=== PATIENT | female | born 1965 | race Caucasian/White ===

== ENCOUNTER 2024-09-28 12:19 | Outpatient (CLI) | payer OTHER, SELFPAY ==
--- NOTE | 2024-09-28 12:30 | ECG_ITS ---
Test Date: 2024-09-28 12:42:33 Measurements Intervals Freer Rate: 77 P: 44 MT: 168 QRS: 44 QRSD: 92 T: -8 QT: 366 QTc: 417 Interpretive Statements SINUS RHYTHM POSSIBLE ANTERIOR MYOCARDIAL INFARCTION [30 ms Q WAVE IN V3/V4, OR R < 0.2 mV IN V4], PROBABLY OLD STTW ABNORMALITY IN INFERIOR LEADS, CONSIDER ISCHEMIA No previous ECG available for comparison Electronically Signed On 09-28-2024 15:34:31 REPLENISHMENT ASSOCIATE by Frankie Brown M.D.
== END 2024-09-28 12:20 | disposition home or self-care (01) ==
PROVIDERS: PCP Registered Nurse; Visit Provider Podiatrist Foot & Ankle Surgery
DX: I10 Essential (primary) hypertension (principal); R94.31 Abnormal electrocardiogram [ECG] [EKG]
CPT/HCPCS: 93005

== ENCOUNTER 2024-10-01 00:17 | Day surgery (SDC) | payer OTHER, SELFPAY ==
[2024-09-23 10:21] VITALS: BMI 27.4
--- NOTE | 2024-09-23 10:32 | PC.NURSE ---
Report to the Outpatient Waiting Room, entrance under the green pavilion located off [facility], at time _0900_ on date _[id number]_. Planned Procedure Time: _1100_.? Time changes happen often and if your time is changed the preop area will call you the afternoon before. - You and your visitor will be asked to self-screen and do not enter if you have any COVID symptoms. Please call surgeon if you need to reschedule. - A mask is optional within the hospital at this time. Patients may have clear liquids (water, carbonated beverages, clear teas, apple juice) until 3 hours prior to surgery with a maximum of 20 ounces. - No food from midnight until time of surgery and no smoking. This includes no chewing gum, candy or mints. Take only the following medications with a SIP of water on the morning of surgery: ___Sertraline, Bupropion, and Gabapentin DO NOT STOP ANY OF YOUR OTHER PRESCRIPTION MEDICATIONS PRIOR TO SURGERY EXCEPT THE FOLLOWING Medications to discontinue per physician ___All vitamins Date to take last [id number]___[id number] Patient says she's stopping Meloxicam 1 week before surgery as told by 's office. Please no make-up, nail kinyarwanda, hairspray, perfume, deodorant, or body powder the day of surgery.? No jewelry (including any body piercings) or valuables the day of surgery, leave them at home.? Please take a shower or bath the night before, or the morning of, surgery with an antibacterial soap.? Wear comfortable, loose fitting clothing.? - Jewelry must be removed prior to entering the operating room.? Rings and piercings that are not removed may be cut off. - The hospital will not accept responsibility for valuables.? - Please leave all valuables, including medications, at home the day of surgery. If you are going home after surgery, a licensed service car driver must drive you home.? - NO public transportation without another adult if you receive anesthesia. - We recommend that an adult stay with you for 24 hours following discharge. - We also recommend that you do not drive, make important decision, drink alcoholic beverages, or take any drugs that were not prescribed by your health care provider for at least 24 hours after your discharge time. Follow any additional instructions given to you from your surgeon. Telephone instructions given to __Wendy__and asked if any additional questions and then verbalized understanding. Patient advised to call surgeon office or pre surgery nurse liaison [phone] if any additional questions.
[2024-10-01] VITALS (10 sets, daily range): BP systolic 124–148; BP diastolic 56–78; PULSE 65–92; RESP 14–16; TEMP 36.1–36.7; O2SAT 96–100
--- NOTE | ~2024-10-01 | XR_ITS ---
EXAMINATION: XR surgery orthopedic DATE: 10/01/2024 11:32 INDICATION: Left foot first metatarsophalangeal arthrodesis TECHNIQUE: 2 images of the forefoot were obtained during procedure performed by Dr. Hopson. Radiolo gist was not present for the imaging or procedure. The amount of fluoroscopy time used during this pr ocedure was 0.3 minutes. Total DAP was 1.894 cGycm^2 COMPARISON: None. FINDINGS: First metatarsophalangeal arthrodesis which is fixed with an oblique compression screw and dorsal kristopher te and screws. There is also been a bunionectomy/osteotomy at the medial head of the first metatarsal . Alignment appears normal. No fracture. Mild osteoarthritis at a few of the interphalangeal joints. IMPRESSION: 1. Postoperative changes in the left forefoot of a bunionectomy and instrumented first metatarsophala ngeal arthrodesis. See procedure note for further detail. Reviewed, dictated and finalized at location B. ECTION OFFICER REFORMATORY IMPRESSION: 1. Postoperative changes in the left forefoot of a bunionectomy and instrumente d first metatarsophalangeal arthrodesis. See procedure note for further detail.
--- NOTE | 2024-10-01 07:18 | WPDHPUPDATE1 ---
History and Physical Update Update Date/Time: 10/01/24 07:18 History and Physical has been reviewed, including an updated exam of the patient. There are NO changes in the patient's condition. Risks, benefits, and alternatives have been discussed and questions answered. Patient agrees to proceed with procedure.
[2024-10-01] MEDS: LACTATED RINGERS 1,000 ML 30 ML IV CONT (09:30)
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
[2024-10-01] MEDS: LIDOCAINE 2% LOCAL INJ 20 ML VIAL 10 ML INFILTRATE (10:21)
[2024-10-01] MEDS: ceFAZolin 2 GM/D5W 50 ML 2 GM/50 ML BAG IVPB (10:30)
--- NOTE | 2024-10-01 11:48 | P.OP_ITS ---
Procedure Note - Detailed Date of Procedure 10/01/24 Pre-op Diagnosis Arthritic Bunion Left Foot Post-op Diagnosis Same Procedure Performed Arthrodesis of the 1st Metatarsal Phalangeal Joint left foot Surgeon Junior Hopson Jr., DPM Anesthesia General and Local Indications Painful left forefoot Findings Significant joint degeneration left 1st metatarsal phalangeal joint Description of Procedure PROCEDURE IN DETAIL: Under mild sedation, the patient was brought into the operating room, placed on the operating table in supine position. A pneumatic ankle tourniquet was placed about the patient's ipsilateral ankle. Following general anesthesia and a Graham Block with 20ccs of 2% Lidocaine plain and 0.5% Marcaine plain, the foot was then scrubbed, prepped, and draped in the usual aseptic manner. An Esmarch bandage was then used to exsanguinate the patient's foot and the pneumatic ankle tourniquet was then inflated. Surgery began in the following manner: Attention was directed to the dorsal medial aspect of the 1st metatarsophalangeal joint where there was a moderate subcutaneous prominence was noted. The incision was made starting along the central shaft of the 1st metatarsal and extending just proximal to the interphalangeal joint of the hallux. The incision was continued deep down through the subcutaneous tissues using sharp and blunt dissection. All bleeders were cauterized as necessary. At this point, the dissection was continued down to the level of the periosteum and capsular structures overlying the 1st metatarsophalangeal joint. A full length periosteum and capsular incision was made just medial to the extensor hallucis longus tendon. The periosteum and capsular structures were freed from the base of the proximal phalanx as well as the distal 1st metatarsal. At this point, the 1st metatarsophalangeal joint was identified. There was loss of articular cartilage to the head of the 1st metatarsal as well as the base of the proximal phalanx worse centrally and medially. There was significant broadening and hypertrophy of the 1st metatarsophalangeal joint. Utilizing a sagittal bone saw, the hypertrophied 1st metatarsal was resected dorsally, medially, and laterally. A power bur was used to make sure that there were no rough edges and also to further debride the hypertrophic 1st metatarsal. Next, a rongeur was used to resect the hypertrophic base of the proximal phalanx. At this point, the reamer system for the Maxforce plate system was used to denude the degenerative cartilage from the head of the 1st metatarsal as well as the base of the proximal phalanx. The cartilage and subchondral bone were fully debrided utilizing the reamer system until healthy bleeding bone was noted. Next, a 2-0 drill bit was used to further fenestrate the head of the 1st metatarsal as well as the base of the proximal phalanx in order to allow fusion across the 1st metatarsophalangeal joint. Next, a guide wire for a 3.0 headless Arthrex compression screw was driven from the medial aspect of the base of the proximal phalanx into the head of the 1st metatarsal in order to serve as temporary fixation, next the cannulated screw was driven and provided excellent compression. Next A large steel plate was used to make sure that the hallux was in a rectus position both in the sagittal plane as well as the frontal plane. Excellent position of the hallux was noted. Next, a Maxforce plate was placed atop the 1st metatarsophalangeal joint held in position with [place] wires. Utilizing standard principles and techniques, the distal drill holes were drilled and three 3.0 mm fully-threaded locking screws were driven from dorsal to plantar holding the distal aspect of the plate intact. At this point, the Maxforce compression system was utilized from dorsal distal to proximal plantar across the 1st metatarsophalangeal joint with excellent compression noted. Next, a 3.0mm locking screw was used to further compress the joint along the oblong dynamic compression screw slot. Next, the remaining 2 proximal drill holes were drilled from dorsal to plantar across and two 3.0 mm locking screws were driven from dorsal to plantar. The wound site was then flushed with copious amounts of sterile saline. Fluoroscopy was used to make sure that the plate was appropriately aligned and oriented and also to make sure that the screws were of appropriate length and orientation. Excellent position of the 1st metatarsophalangeal joint was visualized in all planes. Next, the periosteum and capsular structures were reapproximated with 3-0 Vicryl. Next, the subcutaneous structures were reapproximated with 4-0 Vicryl. Next, the skin was reapproximated and coapted utilizing 4-0 Monocryl in running subcuticular suture fashion technique. Upon completion of the procedure, the incision was dressed with Steri-Strips, Adaptic, 4x4s, Kerlix, and Coban. The pneumatic ankle tourniquet was then deflated and a prompt hyperemic response was noted to all digits of the foot. A posterior splint was then applied to the affected lower extremity. It is important to note that Dr. Hopson was present throughout the procedure. The patient did very well with the procedure and the anesthesia. The patient was transferred to the recovery room with vital signs stable and vascular status intact to all toes of the foot. Following a period of postoperative monitoring, the patient will be discharged home on the following written and oral postoperative instructions: 1. Keep the dressing clean, dry, and intact. 2. The patient to be strictly nonweightbearing with a knee scooter or crutches. 3. The patient should ice and elevate the foot when at rest. 4. The patient should contact Dr. Hopson for all postop care and if any problems should arise. 5. Prescriptions were written for Percocet 5/325, dispensed 40 to be taken 1 p.o. q.4-6 hours as needed for severe pain. Furthermore, the patient should also take Xarelto 10 mg to be taken 1 p.o. daily starting 24 hours after surgery to prevent DVT for 14 days followed by one 325 mg aspirin until walking is re-initiated. Implants One Arthrex Maxforce Plate with 5 3.0 locking screws and one Kreulock Screw One Arthrex 3.5mm Headless Cannulated Compression screw Estimated Blood Loss 1 Drains No Packing No Pathology None sent Complications No immediate complications Condition Stable Disposition Same day
[2024-10-01] MEDS: fentaNYL CITRATE INJ (*CRX) 100 MCG/2 ML VIAL 25 MCG IV PUSH (12:22)
--- OUTSIDE RECORDS SUMMARY | 2024-10-07 04:37 | XMS_ITS | Encounter Summary ---
Author Organization [facility] Address [facility]ly [facility] [place] [address] [place] [address] Care Team Providers Care Manager Telemetry Name Role Phone Dian Zamudio RN Unavailable [phone] Nila Presley APRN Primary Care Provider [phone] Encounter Details Date Type Department Care Team (Late st Contact Info) Description 11/05/2023 [employer] Message Enc [facility] Family & Internal Medicine - [place] [address] [place] [address] Nila Presley APRN [address] [address] [place] Social History Tobacco Use Types Packs/Day Years Used Date Smoking Tobacco: Never Smokeless Tobacco: Never Alcohol Use Standard Drinks/Week Comments Yes 0 (1 standard drink = 0.6 oz pur e alcohol) rare PHQ-2 Answer Date Recorded Patient Health Questionnaire-2 Score 0 11/03/2023 Education Answer Date Recorded What is the highest level of school you have completed or the highest degree you have received? Associate degree: occupational, technical, or vocational program 11/25/2018 Comments No Sex and Gender Information Value Date Recorded Sex Assigned at Female 10/22/2019 4:17 PM TEACHING FELLOW Legal Sex Female 5:38 PM CDT Gender Identity Female 10/22/2019 4:17 PM TEACHING FELLOW Sexual Orientation Straight 10/22/2019 4: 17 PM TEACHING FELLOW documented as of this encounter Plan of Treatment Upcoming Encounters Date Type Department Care Team (Late st Contact Info) Description 12/21/2024 10:00 AM CDT Appointment [facility] [address] [place] [address] Nila Presley, HIREN [address] [facility] [address] [place] [address] 02/24/2025 9:40 AM CDT Office Visit [facility] Family & Internal Medicine - [place] [address] [place] [address] Nila Presley, HIREN [address] [address] documented as of this encounter Visit Diagnoses Not on filedocumented in this encounter Additional Health Concerns Infection Onset Date Last Indicated Resolved Time 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 Assessment Noted Time PHQ-9 Depression Total Score: 0 11/03/19 24 9:39 AM TEACHING FELLOW documented as of this encounter Care Teams Manager Telemetry Relationship Specialty Start Date End Date Nila Presley APRN [address] [address] PCP - General NURSE PRACTITIONER 04/16/23 Dian Zamudio, RN [address] [place] [address] Mechanical Manufacturing Technician (Ambulatory) REGISTERED NURSE 12/09/18 documented as of this encounter
--- OUTSIDE RECORDS SUMMARY | 2024-10-07 04:37 | XMS_ITS | Encounter Summary ---
Author Organization [facility] Address [facility]. [place], [place] [address] [place] [address] Care Team Providers Care Revenue Collector Name Role Phone Placido Arrieta MD Primary Care Provider U Dian Paulino RN Unavailable [phone] Sarah Webb [facility] Primary Care Provider + Nila Presley APRN Primary Care Provider [phone] Encounter Details Date Type Department Care Team (Late st Contact Info) Description 03/22/2021 Beyond [employer]iance Message Enc [facility] Family & Internal Medicine - [address] [address] Shiela [facility] Provider MRI results Social History Tobacco Use Types Packs/Day Years Used Date Smoking Tobacco: Never Smokeless Tobacco: Never Alcohol Use Standard Drinks/Week Comments Yes 0 (1 standard drink = 0.6 oz pur e alcohol) rare PHQ-2 Answer Date Recorded PHQ-2 Score - If the patient scores above 3, please move on to questions 3-9 0 03/07/2021 Education Answer Date Recorded What is the highest level of school you have completed or the highest degree you have received? Associate degree: occupational, technical, or vocational program 11/25/2018 Comments No Sex and Gender Information Value Date Recorded Sex Assigned at Female 10/22/2019 4:17 PM PERMACULTURE DESIGNER Legal Sex Female 5:38 PM CDT Gender Identity Female 10/22/2019 4:17 PM PERMACULTURE DESIGNER Sexual Orientation Straight 10/22/2019 4: 17 PM PERMACULTURE DESIGNER COVID-19 Exposure Response Date Recorded In the last month, have you been in contact with someone who was confirmed or suspected to have Coronavirus / COVID-19? No / Unsure 03/20/2021 2:21 PM CDT documented as of this encounter Plan of Treatment Upcoming Encounters Date Type Department Care Team (Late st Contact Info) Description 12/21/2024 10:00 AM CDT Appointment [facility] [address] [place], [place] [id number] Nila Presley APRN [address] [phone] 02/24/2025 9:40 AM CDT Office Visit [facility] Medical [facility] Family & Internal Medicine [facility] [address] [place] [address] Nila Presley APRN [address] [phone] documented as of this encounter Visit Diagnoses Not on filedocumented in this encounter Additional Health Concerns Infection Onset Date Last Indicated Resolved Time 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 Assessment Noted Time PHQ-9 Depression Total Score: 0 03/07/20 21 4:05 PM CDT documented as of this encounter Care Teams Revenue Collector Relationship Specialty Start Date End Date Placido Arrieta MD PCP - General INTERNAL MEDICINE 11/24/18 11/05/22 Sarah Webb FNP- [address] [place] [address] PCP - General Nurse Practitioner Family 11/06/22 04/15/23 Nila Presley APRN [address] [address] PCP - General NURSE PRACTITIONER 04/16/23 Dian Zamudio, RN [address] [place] [address] Mgmt Analyst (Ambulatory) REGISTERED NURSE 12/09/18 documented as of this encounter
--- OUTSIDE RECORDS SUMMARY | 2024-10-07 04:37 | XMS_ITS | Encounter Summary ---
Author Organization [facility] Address [facility] [place] [address] [place] [address] Care Team Providers Care Machine Tool Operator Name Role Phone Dian Zamudio RN Unavailable [phone] Nila Presley APRN Primary Care Provider [phone] Reason for Visit * Reason Onset Date Comments Sinus Problem 05/23/2024 Encounter Details Date Type Department Care Team (Late st Contact Info) Description 05/23/2024 T3D Therapeuticst Message Enc [facility] Medical [facility] Family & Internal Medicine [facility] [address] [place] [address] Nila Presley APRN [address] [facility] [address] [place] [address] Sinus infection Social History Tobacco Use Types Packs/Day Years Used Date Smoking Tobacco: Never Passive Smoke Exposure: Never Smokeless Tobacco: Never Alcohol Use Standard Drinks/Week Comments Yes 0 (1 standard drink = 0.6 oz pur e alcohol) rare PHQ-2 Answer Date Recorded Patient Health Questionnaire-2 Score 0 04/08/2024 Education Answer Date Recorded What is the highest level of school you have completed or the highest degree you have received? Associate degree: occupational, technical, or vocational program 11/25/2018 Comments No Sex and Gender Information Value Date Recorded Sex Assigned at Female 10/22/2019 4:17 PM MEDICAL CLAIMS REPRESENTATIVE Legal Sex Female 5:38 PM CDT Gender Identity Female 10/22/2019 4:17 PM MEDICAL CLAIMS REPRESENTATIVE Sexual Orientation Straight 10/22/2019 4: 17 PM MEDICAL CLAIMS REPRESENTATIVE documented as of this encounter Progress Notes * Nila Presley APRN - 05/24/2024 10:59 PM CDT Patient will need to be seen * Ml Allison - 05/24/2024 10:47 AM CDT Jeanie calling asking about my chart message that she sent this weekend. Informed her this was sent to Nila as we are waiting for her response. Informed Jeanie that she should come in to the walk in clinic to be evaluated or wait until Nila response, but office policy is no antibiotics can be sent out with out an exam. * Mary Jo Odom MA - 05/24/2024 9:38 AM CDT Advise? documented in this encounter Plan of Treatment Upcoming Encounters Date Type Department Care Team (Late st Contact Info) Description 12/21/2024 10:00 AM CDT Appointment [facility] [address] [place] [address] Nila Presley, TRAILER CHIEF [address] [facility] [address] [place] [address] 02/24/2025 9:40 AM CDT Office Visit [facility] Medical Group Family & Internal Medicine - [place] [address] [place] [phone] Nila Presley, TRAILER CHIEF [address] [address] documented as of this encounter Visit Diagnoses Not on filedocumented in this encounter Additional Health Concerns Infection Onset Date Last Indicated Resolved Time 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 Assessment Noted Time PHQ-9 Depression Total Score: 0 11/03/19 24 9:39 AM MEDICAL CLAIMS REPRESENTATIVE documented as of this encounter Care Teams Machine Tool Operator Relationship Specialty Start Date End Date Nila Presley APRN [address] [facility] [address] [place] [address] PCP - General NURSE PRACTITIONER 04/16/23 Dian Zamudio, RN [address] [place] [address] Video Library Assistant (Ambulatory) REGISTERED NURSE 12/09/18 documented as of this encounter
--- OUTSIDE RECORDS SUMMARY | 2024-10-07 04:37 | XMS_ITS | Encounter Summary ---
Author Organization [facility] Address Formerly [facility] [place] [address] [place] [address] Care Team Providers Care Electrician Station Assistant Name Role Phone Placido Arrieta MD Primary Care Provider U Dian Paulino RN Unavailable [phone] Sarah Webb [facility] Primary Care Provider + Nila Presley APRN Primary Care Provider [phone] Encounter Details Date Type Department Care Team (Late st Contact Info) Description 03/12/2021 MyChart Message Enc [facility] Family & Internal Medicine - [address] [address] Placido Arrieta MD Other Social History Tobacco Use Types Packs/Day Years [...] Sex Assigned at Female 10/22/2019 4:17 PM MAINTENANCE GROUNDMAN Legal Sex Female 5:38 PM CDT Gender Identity Female 10/22/2019 4:17 PM MAINTENANCE GROUNDMAN Sexual Orientation Straight 10/22/2019 4: 17 PM MAINTENANCE GROUNDMAN COVID-19 Exposure Response Date Recorded In the last month, have you been in contact with someone who was confirmed or suspected to have Coronavirus / COVID-19? No / Unsure 03/07/2021 3:56 PM CDT documented as of this encounter Progress Notes * Miryam Rosario RN - 03/12/2021 10:46 AM CDT I have sent Dr Allen the information * Ml Lopez RN - 03/12/2021 10:36 AM CDT Please have Dr. Allen address pain medication, Lexi is out of the office until Friday and he sawpatient last week for follow up for her foot pain. documented in this encounter Plan of Treatment Upcoming Encounters Date Type Department Care Team (Late st Contact Info) Description 12/21/2024 10:00 AM CDT Appointment [facility] [address] [place], [place] [id number] Nila Presley, HIREN [address] [id number] 02/24/2025 9:40 AM CDT Office Visit [facility] Family & Internal Medicine - [place] [address] [place] [address] Nila Presley, HIREN [address] [phone] documented as of this encounter Visit Diagnoses Not on filedocumented in this encounter Additional Health Concerns Infection Onset Date Last Indicated Resolved Time 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 Assessment Noted Time PHQ-9 Depression Total Score: 0 03/07/20 4:05 PM CDT documented as of this encounter Care Teams Electrician Station Assistant Relationship Specialty Start Date End Date Placido Arrieta MD PCP - General INTERNAL MEDICINE 11/24/18 11/05/22 Sarah Webb FNP- [address] [place] [address] PCP - General Nurse Practitioner Family 11/06/22 04/15/23 Nila Presley APRN [address] [facility] [address] [place] [address] PCP - General NURSE PRACTITIONER 04/16/23 Dian Zamudio RN [address] [place] [address] Medical Claims Processor (Ambulatory) REGISTERED NURSE 12/09/18 documented as of this encounter
--- OUTSIDE RECORDS SUMMARY | 2024-10-07 04:37 | XMS_ITS | Encounter Summary ---
Author Organization [facility] Address [facility] [place] [address] [place] [address] Care Team Providers Care Massage Operator Name Role Phone Dian Zamudio RN Unavailable [phone] Nila Presley APRN Primary Care Provider [phone] Encounter Details Date Type Department Care Team (Late st Contact Info) Description 02/16/2024 [employer] Message Enc [facility] Family & Internal Medicine [facility] [address] [place] [address] Nila Presley APRN [address] [facility] [address] [place] [address] Spasms Social History Tobacco Use Types Packs/Day Years [...] Sex Assigned at Female 10/22/2019 4:17 PM BOOM WORKER Legal Sex Female 5:38 PM CDT Gender Identity Female 10/22/2019 4:17 PM BOOM WORKER Sexual Orientation Straight 10/22/2019 4: 17 PM BOOM WORKER documented as of this encounter Progress Notes * Nila Presley APRN - 02/16/2024 12:16 PM CDT Noted thank you documented in this encounter Plan of Treatment Upcoming Encounters Date Type Department Care Team (Late st Contact Info) Description 12/21/2024 10:00 AM CDT Appointment [facility] [address] [place], [place] [phone] Nila Presley APRN [address] [address] 02/24/2025 9:40 AM CDT Office Visit [facility] Family & Internal Medicine - [place] [address] [place] [address] Nila Presley APRN [address] [phone] documented as of this encounter Visit Diagnoses Not on filedocumented in this encounter Additional Health Concerns Infection Onset Date Last Indicated Resolved Time 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
--- OUTSIDE RECORDS SUMMARY | 2024-10-07 04:37 | XMS_ITS | Encounter Summary ---
Author Organization [facility] Address [facility] [facility] [place] [address] [place] [address] Care Team Providers Care Sales Agent Food Vending Service Name Role Phone Dian Zamudio RN Unavailable [phone] Nila Presley APRN Primary Care Provider [phone] Encounter Details Date Type Department Care Team (Late st Contact Info) Description 08/27/2024 [employer] Message Enc [facility] Family & Internal Medicine [address] [address] Shiela, [facility] Provider Hand popping Social History Tobacco Use Types Packs/Day Years Used Date Smoking Tobacco: Never Passive Smoke Exposure: Never Smokeless Tobacco: Never Alcohol Use Standard Drinks/Week Comments Yes 0 (1 standard drink = 0.6 oz pur e alcohol) rare PHQ-2 Answer Date Recorded Patient Health Questionnaire-2 Score 0 06/04/2024 Education Answer Date Recorded What is the highest level of school you have completed or the highest degree you have received? Associate degree: occupational, technical, or vocational program 11/25/2018 Comments No Sex and Gender Information Value Date Recorded Sex Assigned at Female 10/22/2019 4:17 PM FIOS LINE INSTALLER Legal Sex Female 5:38 PM CDT Gender Identity Female 10/22/2019 4:17 PM FIOS LINE INSTALLER Sexual Orientation Straight 10/22/2019 4: 17 PM FIOS LINE INSTALLER documented as of this encounter Plan of Treatment Upcoming Encounters Date Type Department Care Team (Late st Contact Info) Description 12/21/2024 10:00 AM CDT Appointment [facility] [address] [place] [address] Nila Presley APRN [address] [facility] [address] [place] [address] 02/24/2025 9:40 AM CDT Office Visit [facility] Family & Internal Medicine - [place] [address] [place] [address] Nila Presley APRN [address] [address] documented as of this encounter Visit Diagnoses Not on filedocumented in this encounter Additional Health Concerns Infection Onset Date Last Indicated Resolved Time 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
--- OUTSIDE RECORDS SUMMARY | 2024-10-07 04:37 | XMS_ITS | Clinical Summary ---
Author Organization [facility] Address Formerly [facility] [place] [address] [place] [address] Care Team Providers Care Nurse Clinical Name Role Phone Dian Zamudio RN Unavailable Aquiles Rowell APRN Primary Care Provider [phone] Allergies No known active allergies Medications vitamin D3, cholecalciferol, 1000 UNIT Tab tablet Take 2 tablets (50 mcg total) by mouth daily. 03/24/20 15 Active calcium carbonate 600 MG tablet Take 1 Dose by mouth 2 (two) times daily. Active DAILY MULTIPLE VITAMINS OR Take by mouth daily. Active vitamin B-12 (CYANOCOBALAMIN) (CYANOCOBALAMIN) 1000 mcg tablet Take 1 tablet (1,000 mcg total) by mouth daily. Active Potassium 99 MG tablet Take 1 tablet by mouth daily. 09/09/20 23 Active calcium carb-cholecalcife rol (CALTRATE+D) 600-10 MG-MCG Tab tablet Take 2 tablets by mouth. 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 8mm lift right 1 Device 11/19/19 24 Active traMADol (ULTRAM) 50 MG tabletIndications :Acute Pain < 7 Day Supply Take 1 tablet (50 mg total) by mouth every 6 (six) hours as needed for Pain. Indications: Acute Pain < 7 Day Supply 21 tablet 06/29/20 24 Active omeprazole (PRILOSEC) 20 MG capsuleIndication s:Gastroesophagea l reflux disease without esophagitis TAKE 1 CAPSULE BY MOUTH EVERY DAY 90 capsule 1 07/23/20 24 Active lisinopril (PRINIVIL) 10 MG tabletIndications :Essential hypertension TAKE 1 TABLET BY MOUTH EVERY DAY 90 tablet 1 08/02/20 24 Active sertraline (ZOLOFT) 25 MG tabletIndications :Reactive depression TAKE 1 TABLET (25 MG TOTAL) BY MOUTH DAILY. 90 tablet 1 08/02/20 24 Active meloxicam (MOBIC) 15 MG tabletIndications :Osteoarthritis involving multiple joints on both sides of body Take 1 tablet (15 mg total) by mouth daily. 90 tablet 1 08/19/20 24 Active buPROPion XL (WELLBUTRIN XL) 150 MG 24 hr tabletIndications :Reactive depression Take 1 tablet (150 mg total) by mouth daily. 90 tablet 1 08/19/20 24 Active rOPINIRole (REQUIP) 1 MG tabletIndications :Restless leg Take 1 tablet (1 mg total) by mouth nightly at bedtime. 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 11/05/2023 Femoral acetabular impingement 11/03/2023 Leg length discrepancy 11/03/2023 Chronic pain of both hips 09/03/2023 Iron deficiency anemia, unsp ecified iron deficiency anemia type 03/20/2023 Restless leg syndrome 03/20/2023 Primary insomnia 03/20/2023 Dyslipidemia 03/20/2023 BMI 28.0-28.9,adult 03/20/2023 Bunion of great toe 05/19/2022 Left foot pain 03/07/2021 Muscle spasm 12/18/2018 Varicosities of leg 05/27/2018 Unsteady gait 11/07/2017 Assessment & Plan (11/03/2023 12:55 PM BUTADIENE COMPRESSOR OPERATOR): Recommendation at this time: The patient is not experiencing any pain at the moment, she is just trying to establish. So we will try to get her over to either [facility] for evaluation treatment and getting her into a lift on the right side. We will also get her set up for leg length measuring. We will follow-up in six weeks. Vitamin D deficiency 04/19/2016 Depression 05/14/2013 Overview (11/25/2018): Annotation - [id number]: Annotation: Depression, recurrent (F33.9); Impression - [id number] Placido Arrieta: Impression: Stable based upon evaluation of the patient and the patient's available records. Continue established treatment plan.; Description: Depression, recurrent (F33.9) Generalized osteoarthritis of multiple sites Essential hypertension 05/14/2013 Resolved Problems Problem Noted Date Diagnosed Date Resolved Date Right-sided chest wall pain 06/11/2022 03/20/2023 Need for immunization against influenza 06/06/2021 06/11/2021 Colon cancer screening 03/08/202005/26 Abrasion of left elbow, initial encounter 09/01/2019 09/13/2020 Lump in the groin 09/01/2019 09/13/2020 Upper respiratory tract infe ction, unspecified type 06/09/2019 03/20/2023 Femur fracture, right ([facility]) 03/17/2019 09/01/2019 BMI 34.0-34.9,adult 03/02/2019 03/20/20 Closed fracture of right dis tracey femur ([facility]) 12/03/2018 03/02/2019 Overview (03/02/2019): Overview: Added automatically from request for surgery [id number] Displaced comminuted fractur e of shaft of right femur, initial encounter for closed fracture ([facility]) 11/30/2018 03/02/2019 Edema leg 01/16/2018 03/02/2019 Speech disturbance 07/19/2016 3 Encounters Date Type Department Care Team Description 10/01/2024 Scan HEALTH INFO SRVCS Scanned, Doc [facility] Procedure (SCAN) 09/23/2024 [facility] [address], [address] [place] [phone] Mateusz Paiz MD Results 09/21/2024 9:53 AM BUTADIENE COMPRESSOR OPERATOR Anesthesia Event [facility] [address] [place] [address] Cris Tong, GÉNESIS 09/21/2024 9:05 AM BUTADIENE COMPRESSOR OPERATOR - 09/21/2024 9:38 AM BUTADIENE COMPRESSOR OPERATOR Surgery [facility] [address] [place] [address] Mateusz Paiz MD COLONOSCOPY DIAGNOSTIC WITH/WITHOUT SPE 09/21/2024 7:27 AM BUTADIENE COMPRESSOR OPERATOR - 09/21/2024 11:05 AM BUTADIENE COMPRESSOR OPERATOR Hospital Encounter [facility] [address] [place] [address] Mateusz Paiz MD Discharge Disposition: Home or Self Care (Routine Discharge) 09/21/2024 Travel 09/16/2024 Telephone [facility] [address] [address] Aquiles Rowell, ACCOUNT EXECUTIVE SOFTWARE SALES Referral 09/02/2024 [facility] [address], [address] [place] [phone] Mateusz Paiz MD Prior Authorization (Colonoscopy-[id number]) 08/27/2024 MyChart Message Enc [facility] [address] [address] [facility] Hand popping 08/25/2024 MyChart Message Enc [facility] [address] [phone] Aquiles Rowell APRN Pinky finger 08/19/2024 10:38 AM BUTADIENE COMPRESSOR OPERATOR - 08/19/2024 11:59 PM BUTADIENE COMPRESSOR OPERATOR Hospital Encounter [facility] [id number] [place] [address] Aquiles Rowell APRN Discharge Disposition: Home or Self Care (Routine Discharge) 08/19/2024 10:38 AM BUTADIENE COMPRESSOR OPERATOR - 08/19/2024 11:59 PM BUTADIENE COMPRESSOR OPERATOR Hospital Encounter [facility] [address] [place] [address] Aquiles Rowell APRN Discharge Disposition: Home or Self Care (Routine Discharge) 08/19/2024 9:20 AM BUTADIENE COMPRESSOR OPERATOR Office Visit [facility] [address] [address] Aquiles Rowell APRN Follow Up (6 month follow up on medications. Pt needs a flu and shingles vaccines); Finger pain (Left hand fingers are hurting); Fall (C/o falling and being off balance often recently. Due to falling pt has injured herself) 08/19/2024 Orders Only [facility] [address] [place] [address] Aquiles Rowell APRN 08/19/2024 Travel 08/05/2024 Scan HEALTH INFO SRVCS Scanned, [facility] 07/22/2024 Telephone [facility] [address] [phone] Aquiles Rowell APRN Leg Pain from Last 3 Months Immunizations Name Administration Dates Next Due Fluzone 6 Months+ Quad (0.5 mL Prefilled Syringe) 07/29/2023,06/06/2021,07/29/2020 Fluzone Adult - >Age 3 (Pref illed Syringe) 08/23/2019 Influenza (Generic) 09/01/2017,07/19/2016 Influenza Adult (Generic) 08/16/2022,,09/01/2017, 016 LightPole (ARTI & ARTI) COVID-19 AD26 VACCINE 0.5 ML IM SUSP 11/23/2020 PFIZER COVID-19 (ORIGINAL FORMULATION, PURPLE CAP) mRNA, LNP-S, PF, 30 MCG/0.3 ML DOSE 08/18/2021 Tdap (Adacel) 05/04/2012 Tdap (Boostrix) 07/29/2020 Tdap (Generic) 07/29/2020 Family History Medical History Relation Comments Cancer Brother prostate Heart Father Hypertension Father cardiac stent Father Heart Mother Hypertension Mother Breast Cancer Neg Hx Relation Status Comments Brother Alive Father Alive Mother Social History Tobacco Use Types Packs/Day Years Used Date Smoking Tobacco: Never Passive Smoke Exposure: Never Smokeless Tobacco: Never Tobacco Cessation:Counseling Given: No Alcohol Use Standard Drinks/Week Comments Yes 0 [...] Sex Assigned at Female 10/22/2019 4:17 PM BUTADIENE COMPRESSOR OPERATOR Legal Sex Female 5:38 PM CDT Gender Identity Female 10/22/2019 4:17 PM BUTADIENE COMPRESSOR OPERATOR Sexual Orientation Straight 10/22/2019 4: 17 PM BUTADIENE COMPRESSOR OPERATOR Last Filed Vital Signs Vital Sign Reading Time Taken Comments Blood Pressure 132/73 09/21/2024 10:45 AM BUTADIENE COMPRESSOR OPERATOR Pulse 63 09/21/2024 10:21 AM BUTADIENE COMPRESSOR OPERATOR Temperature 37.1 ??C (98.7 ??F) 09/21/2024 7:45 AM CS T Respiratory Rate 18 09/21/2024 10:45 AM BUTADIENE COMPRESSOR OPERATOR Oxygen Saturation 99% 09/21/2024 10:45 AM BUTADIENE COMPRESSOR OPERATOR Inhaled Oxygen Concentration - - Weight 78 kg (172 lb) 09/06/2024 2:43 PM BUTADIENE COMPRESSOR OPERATOR Height 170.2 cm (5' 7 ) 09/06/2024 2:43 PM BUTADIENE COMPRESSOR OPERATOR Body Mass Index 26.94 09/06/2024 2:43 PM BUTADIENE COMPRESSOR OPERATOR Plan of Treatment Upcoming Encounters Date Type Department Care Team (Late st Contact Info) Description 12/21/2024 10:00 AM CDT Appointment [facility] [address] [place], [place] [phone] Aquiles Rowell, ACCOUNT EXECUTIVE SOFTWARE SALES [address] [facility] [address] [place] [phone] 02/24/2025 9:40 AM CDT Office Visit [facility] Family & Internal Medicine - [place] [address] [place] [address] Aquiles Rowell, ACCOUNT EXECUTIVE SOFTWARE SALES [address] [facility] [address] [place] [address] Health Maintenance Due Date Last Done Comments Cervical Cancer Screening Pap with HPV Testing (Age 30 to 64) Every 5 Years 1996 Mammogram Screening 05/06/2024 05/06/2023, 08/10/2021, 02/03/2018, Additional history exists Influenza Adult (#1) 2024 07/29/2023, 08/16/2022, 06/06/2021, Additional history exists Zoster Vaccines (1 of 2) 11/03/2024 Pos tponed from 2016 (Patient Refused) Annual Physical 04/08/2025 04/08/2024, 03/11/2023 PHQ-2 (Physician [place]) 06/04/2025 06/04/2024 COVID-19 Vaccine ( season) 2025 08/18/2021, 11/23/2020 Postponed from 05/16/2024 (Patient Refused) Hepatitis B Vaccines (1 of 3 - 19+ 3-dose series) 08/19/2025 Postponed from 1985 (Patient/Guardian Refusal) Cervical Cancer Screening Pap Smear (Age 30 to 64) Every 3 Years 04/08/2027 04/08/2024, 09/27/2020, 07/19/2016 Cervical Cancer Screening with HPV 04/08/2027 DTaP, Tdap and Td Vaccines (4 - Td or Tdap) 07/29/2030 07/29/2020, 07/29/2020, 05/04/2012 Colorectal Cancer Screening Colonoscopy (10 Years) 09/21/2034 09/21/2024 Hepatitis C 08/19/2054 Postponed from 1984 (Patient Refused) Colorectal Cancer Screening FIT-DNA (3 Years) Discontinued 04/20/2023, 04/20/2023, 03/22/2020, Additional history exists Meningococcal B Vaccine Aged Out No l onger eligible based on patient's age to complete this topic Meningococcal Vaccine Aged Out No quiana yisel eligible based on patient's age to complete this topic Pneumococcal Vaccine: Pediatrics (0 to 5 Years) and At-Risk Patients (6 to 64 Years) Aged Out No longer eligible based on patient's age to complete this topic RSV Immunizations Under 20 Months Aged Out No longer eligible based on patient's age to complete this topic Procedures Procedure Name Priority Date/Time Associated Diagnosis Comments PROCEDURE GENERIC (SCAN ORDER) 10/01/2024 COLSC FLX W/RMVL OF TUMOR POLYP LESION SNARE TQ 09/21/2024 9:45 AM BUTADIENE COMPRESSOR OPERATOR Incontinence of feces, unspecified fecal incontinence type PATHOLOGY Routine 09/21/2024 12:00 AM BUTADIENE COMPRESSOR OPERATOR XR FIFTH FINGER LT 3V Routine 08/19/2024 11:07 AM BUTADIENE COMPRESSOR OPERATOR Finger pain, left ANTINUCLEAR ANTIBODY WI RFX Routine 08/19/2024 10:50 AM BUTADIENE COMPRESSOR OPERATOR Osteoarthritis involving multiple joints on both sides of body Essential hypertension, malignant Moderate mixed hyperlipidemia not requiring statin therapy Restless leg syndrome Vitamin D deficiency Pre-diabetes CBC W/DIFF AUTOMATED Routine 08/19/2024 10:50 AM BUTADIENE COMPRESSOR OPERATOR Osteoarthritis involving multiple joints on both sides of body Essential hypertension, malignant Moderate mixed hyperlipidemia not requiring statin therapy Restless leg syndrome Vitamin D deficiency Pre-diabetes COMPREHENSIVE METABOLIC PANEL Routine 08/19/2024 10:50 AM BUTADIENE COMPRESSOR OPERATOR Osteoarthritis involving multiple joints on both sides of body Essential hypertension, malignant Moderate mixed hyperlipidemia not requiring statin therapy Restless leg syndrome Vitamin D deficiency Pre-diabetes LIPID PANEL Routine 08/19/2024 10:50 AM BUTADIENE COMPRESSOR OPERATOR Osteoarthritis involving multiple joints on both sides of body Essential hypertension, malignant Moderate mixed hyperlipidemia not requiring statin therapy Restless leg syndrome Vitamin D deficiency Pre-diabetes MAGNESIUM Routine 08/19/2024 10:50 AM BUTADIENE COMPRESSOR OPERATOR Osteoarthritis involving multiple joints on both sides of body Essential hypertension, malignant Moderate mixed hyperlipidemia not requiring statin therapy Restless leg syndrome Vitamin D deficiency Pre-diabetes TSH W/REFLEX Routine 08/19/2024 10:50 AM BUTADIENE COMPRESSOR OPERATOR Osteoarthritis involving multiple joints on both sides of body Essential hypertension, malignant Moderate mixed hyperlipidemia not requiring statin therapy Restless leg syndrome Vitamin D deficiency Pre-diabetes VITAMIN D, 25 OH Routine 08/19/2024 10:5 0 AM BUTADIENE COMPRESSOR OPERATOR Osteoarthritis involving multiple joints on both sides of body Essential hypertension, malignant Moderate mixed hyperlipidemia not requiring statin therapy Restless leg syndrome Vitamin D deficiency Pre-diabetes RHEUMATOID FACTOR, QUANT Routine 08/19/2024 10:50 AM BUTADIENE COMPRESSOR OPERATOR Osteoarthritis involving multiple joints on both sides of body Essential hypertension, malignant Moderate mixed hyperlipidemia not requiring statin therapy Restless leg syndrome Vitamin D deficiency Pre-diabetes CYTOPATH CERV/VAG THIN LAYER Routine 04/08/2024 11:05 AM CDT Pap smear for cervical cancer screening MG SCREENING W JEYSON TINA DIGI Routine 05/06/2023 2:43 PM CDT Encounter for screening mammogram for malignant neoplasm of breast COLOGUARD (EXACT SCIENCE) Routine 04/20/2023 7:15 AM CDT Colon cancer screening from Last 3 Months or Most Recently Relevant to Health Maintenance Results * PROCEDURE GENERIC (SCAN ORDER) (10/01/2024) 10/01/2024 us [facility] Scanned SCANNING Final Resu lt * Pathology (09/21/2024 12:00 AM BUTADIENE COMPRESSOR OPERATOR) PATHOLOGY [facility] ? Department of Laboratory Medicine ?[address] ?[place] [address] ? , extension [phone] ? Pathology Report ? Surgical Pathology Report Name: BRITTANY LEWIS ?Specimen #: [id number] Age: 2 1965 (Age: 58) ?Location: [facility] Sex: F ?Procedure Date: 09/21/2024 Hospital #: [id number] ?Date Received: 09/22/2024 Date Reported: 09/23/2024 Provider: MATEUSZ PAIZ MD Source: Rectum, polyp Clinical History: Gas, bloating, and fecal incontinence. FINAL DIAGNOSIS: Colon, rectal polyp, biopsy: ? -Hyperplastic polyp. Gross Description: Received in formalin, labeled with a patient label and as rectal polyp are 2 pieces of young tissue, 0.1 and 0.2 cm. ??The specimen is entirely submitted in cassette 1. Gross examination (when applicable), interpretation, and sign out were performed at [facility], [address] [place] [address], [place] [address]. ?? Electronically Signed Out ? RASHAAD ALAN MD [facility] TISSUE COLON STRUCTURE / Unknown 09/21/2024 10:18 AM BUTADIENE COMPRESSOR OPERATOR us Mateusz Paiz MD PATHOLOGY/CYTOLOGY ORDERABLES Fi nal Result [facility] [address] [place] [address], [id number] * XR FIFTH FINGER LT 3V (08/19/2024 11:07 AM BUTADIENE COMPRESSOR OPERATOR) Anatomical Region Laterality Modality Hand Radiographic Almaz ging 08/24/2024 8:54 AM BUTADIENE COMPRESSOR OPERATOR Impressions 08/24/2024 8:56 AM BUTADIENE COMPRESSOR OPERATOR IMPRESSION: 1. ??No acute findings. Degenerative changes as above Ordered By: AQUILES ROWELL Interpreted By: Noemí Aceves, 08/24/2024 8:54 AM Narrative 08/24/2024 8:56 AM BUTADIENE COMPRESSOR OPERATOR [facility] [address] [facility] [place] [address] IMAGING STUDIES: ??XR FIFTH FINGER LT 3V ? DATE: ??08/19/2024 10:40 AM COMPARISON: ??No comparisons. CLINICAL HISTORY: ??PAIN ?? . ??Pain at PIP. No recent history of trauma. FINDINGS: There is no evidence of acute fracture, dislocation, or osseous erosion. No radiopaque foreign bodies or abnormal soft tissue calcifications noted. Moderate degenerative change at the PIP joint with adjacent sclerosis and subchondral cyst formation. Appearance of old nonunited fracture off the dorsal aspect of the PIP joint. Mild degenerative change of the DIP joint. Procedure Note Seb Aceves MD - 08/24/2024 [facility] [address] [place] [address] IMAGING STUDIES: XR FIFTH FINGER LT 3V DATE: 08/19/2024 10:40 AM COMPARISON: No comparisons. CLINICAL HISTORY: PAIN . Pain at PIP. No recent history of trauma. FINDINGS: There is no evidence of acute fracture, dislocation, or osseous erosion. No radiopaque foreign bodies or abnormal soft tissue calcificationsnoted. Moderate degenerative change at the PIP joint with adjacent sclerosis andsubchondral cyst formation. Appearance of old nonunited fracture off thedorsal aspect of the PIP joint. Mild degenerative change of the DIP joint. IMPRESSION: 1. No acute findings. Degenerative changes as above Ordered By: AQUILES ROWELL Interpreted By: Noemí Aceves, 08/24/2024 8:54 AM Aquiles Rowell ACCOUNT EXECUTIVE SOFTWARE SALES GENERAL IMAGING Final Resu lt * TSH W/REFLEX (08/19/2024 10:50 AM BUTADIENE COMPRESSOR OPERATOR) TSH 1.238 0.358 - 3.74 uIU/ML 08/19/2024 11:40 AM BUTADIENE COMPRESSOR OPERATOR [facility] Comment: HIGH DOSES OF BIOTIN MAY INTERFERE WITH THIS TEST RESULT. CORRELATION TO CLINICAL HISTORY AND PRESENTATION RECOMMENDED. FREE T4 NOT INDICATED 08/19/2024 10:5 0 AM BUTADIENE COMPRESSOR OPERATOR Aquiles Rowell ACCOUNT EXECUTIVE SOFTWARE SALES LABORATORY Final Resu lt [facility] [address] [place] [address], [place] [phone] * ANTINUCLEAR ANTIBODY WI RFX (SOTO) (08/19/2024 10:50 AM BUTADIENE COMPRESSOR OPERATOR) SOTO 0.2 08/23/2024 12:29 PM BUTADIENE COMPRESSOR OPERATOR [facility] Comment: NEGATIVE: <0.7 RATIO SOTO PROFILE AND TITER NOT PERFORMED THE SOTO SCREEN TESTS FOR THE FOLLOWING ANTIBODIES BY EIA: SSA1 (RO), SSB1 (LA), ALY, SCL70, JO1, CENTROMERE, MECHANICAL DEVELOPER PROVER HISTONE MUST BE ORDERED SEPARATELY DNA (DS) ANTIBODY 0.8 IU/ML 024 12:29 PM BUTADIENE COMPRESSOR OPERATOR [facility] Comment: NEGATIVE: <10 IU/mL EQUIVOCAL: 10 to 15 IU/mL POSITIVE: >15 IU/mL THIS QUANTITATIVE ASSAY IS CALIBRATED TO THE [employer]'S WO/80 STANDARD. THE LEVEL OF dsDNA AUTOANTIBODY GERERALLY CORRELATES WITH THE LEVEL OF DISEASE ACTIVITY IN SYSTEMIC LUPUS ERYTHMATOSUS 08/19/2024 10:5 0 AM BUTADIENE COMPRESSOR OPERATOR Aquiles Rowell APRN LABORATORY Final Resu lt [facility] [address] [place] [address], [place] [phone] * RHEUMATOID FACTOR, QUANT (08/19/2024 10:50 AM BUTADIENE COMPRESSOR OPERATOR) RHEUMATOID FACTOR <10 <15 IU/ML 08/19/2024 2:20 PM BUTADIENE COMPRESSOR OPERATOR [facility] 08/19/2024 10:5 0 AM BUTADIENE COMPRESSOR OPERATOR Aquiles Rowell APRN LABORATORY Final Resu lt [facility] [address] [place] [address], [place] [phone] * (ABNORMAL) COMPREHENSIVE METABOLIC PANEL (08/19/2024 10:50 AM BUTADIENE COMPRESSOR OPERATOR) [facility] GLUCOSE 88 70 - 99 MG/DL 08/19/2024 11:40 AM [facility] BUN 12 7 - 18 MG/DL 08/19/2024 11:40 AM [facility] CREATININE S/P/B 0.94 0.55 - 1.02 MG/DL 08/19/2024 11:40 AM [facility] SODIUM S/P/B 142 136 - 145 MMOL/L 08/19/2024 11:40 AM [facility] POTASSIUM S/P/B 4.4 3.5 - 5.1 MMOL/L 08/19/2024 11:40 AM [facility] CHLORIDE S/P/B 105 100 - 108 MMOL/L 08/19/2024 11:40 AM [facility] CO2 29.7 21 - 32 MMOL/L 08/19/2024 11:40 AM [facility] CALCIUM S/P/B 9.2 8.5 - 10.1 MG/DL 08/19/2024 11:40 AM [facility] BILIRUBIN TOTAL S/P/B 0.6 0.2 - 1.2 MG/DL 08/19/2024 11:40 AM [facility] TOTAL PROTEIN S/P/B 7.9 6.4 - 8.2 G/DL 08/19/2024 11:40 AM [facility] ALBUMIN S/P/B 3.9 3.4 - 5.0 G/DL 08/19/2024 11:40 AM [facility] AST 30 15 - 37 U/L 08/19/2024 11:40 AM [facility] ALT 59(H) 14 - 55 U/L 08/19/2024 11:40 AM [facility] ALKALINE PHOSPHATASE S/P/B 102 50 - 136 U/L 08/19/2024 11:40 AM [facility] ANION GAP 7.3 5 - 15 MMOL/L 08/19/2024 11:40 AM [facility] BUN CREATININE RATIO 12.8 6 - 26 08/19/2024 11:40 AM [facility] A/G RATIO 1.0 1.0 - 2.0 RATIO 08/19/2024 11:40 AM [facility] GFR ESTIMATE 71(L) >90 ML/MIN/1.7 3 M2 08/19/2024 11:40 AM [facility] Comment: NOTE: eGFR is not calculated for patients <18 years of age. This is an estimated GFR calculation using the new CKD EPI creatinine equation without race and so does not require a correction factor for race. This estimated GFR should not be used for calculating drug doses. 08/19/2024 10:5 0 AM BUTADIENE COMPRESSOR OPERATOR us Aquiles Rowell APRN LABORATORY Final Resu lt [facility] [address] [place] [address], * (ABNORMAL) LIPID PANEL (08/19/2024 10:50 AM [facility]) CHOLESTEROL 208(H) <200.0 MG/DL 08/19/2024 11:40 AM [facility] TRIGLYCERIDES 94 <150 MG/DL 08/19/2024 11:40 AM [facility] HDL 72 >40.0 MG/DL 08/19/2024 11:40 AM [facility] LDL (CALCULATED) 117(H) <100 MG/DL 08/19/2024 11:40 AM BUTADIENE COMPRESSOR OPERATOR [facility] NON HDL CHOLESTEROL 136(H) <130 MG/DL 08/19/2024 11:40 AM [facility] CHOL/HDL RATIO 2.9 0.0 - 4.5 08/19/2024 11:40 AM [facility] VLDL CALCULATION 19 5 - 55 MG/DL 08/19/2024 11:40 AM [facility] LIPID INTERPRETATION 08/19/2024 11:40 AM [facility] Comment: NIH CONCENSUS REPORT RECOMMENDATIONS: ?ADULT ?CHILD ??LOW RISK: ?CHOLESTEROL ? <200 ? <170 ?TRIGLYCERIDE ?<150 ?--- ?HDL ? >=60 ?--- ?LDL ? <100 ? <110 ??BORDERLINE: ?CHOLESTEROL ? 200-239 ?? 170-199 ?TRIGLYCERIDE ?150-199 ? --- ?HDL ?40-59 ?--- ?LDL ? 100-159 ?? 110-129 ??HIGH RISK: ?CHOLESTEROL ? >=240 ?>=200 ?TRIGLYCERIDE ?>=200 ? --- ?HDL ?<40 ?--- ?LDL ? >=160 ?>=130 08/19/2024 10:5 0 AM BUTADIENE COMPRESSOR OPERATOR us Aquiles Rowell ACCOUNT EXECUTIVE SOFTWARE SALES LABORATORY Final Resu lt [facility] [address] [place] [address], * (ABNORMAL) CBC W/DIFF AUTOMATED (08/19/2024 10:50 AM BUTADIENE COMPRESSOR OPERATOR) WBC 5.26 4.4 - 11.0 x10'3/uL 08/19/2024 11:07 AM [facility] RBC 4.54 4.50 - 5.10 x10'6/uL 08/19/2024 11:07 AM [facility] HGB 13.2 12.3 - 15.3 G/DL 08/19/2024 11:07 AM [facility] HCT 41.3 35.9 - 44.6 % 08/19/2024 11:07 AM [facility] MCV 91.0 80.0 - 96.0 FL 08/19/2024 11:07 AM [facility] MCH 29.1 25.3 - 30.9 PG 08/19/2024 11:07 AM [facility] MCHC 32.0 31.0 - 34.1 G/DL 08/19/2024 11:07 AM [facility] RDW 13.2 12.4 - 15.1 % 08/19/2024 11:07 AM [facility] PLT 241 151 - 353 x10'3/uL 08/19/2024 11:07 AM [facility] MPV 9.3(L) 9.6 - 12.0 FL 08/19/2024 11:07 AM [facility] RBC MORPHOLOGY NORMAL 08/19/2024 11:07 AM [facility] PLT MORPH. NORMAL 08/19/2024 11:07 AM [facility] WBC MORPHOLOGY NORMAL 08/19/2024 11:07 AM [facility] LYMPHOCYTES % 46.6(H) 15.8 - 45.0 % 08/19/2024 11:07 AM [facility] NEUTROPHILS % 41.4(L) 42.1 - 71.9 % 08/19/2024 11:07 AM [facility] MONOCYTES % 9.7 5.7 - 12.5 % 08/19/2024 11:07 AM [facility] EOSINOPHILS 1.7 0.0 - 5.6 % 08/19/2024 11:07 AM [facility] BASOPHILS 0.6 0.0 - 1.3 % 08/19/2024 11:07 AM [facility] ABS. NEUTROPHILS 2.18 1.40 - 6.00 x10'3/uL 08/19/2024 11:07 AM [facility] IMMATURE GRANS % 0.0 0.0 - 0.5 % 08/19/2024 11:07 AM [facility] ABS. LYMPHOCYTES 2.45 0.80 - 4.70 x10'3/uL 08/19/2024 11:07 AM [facility] 08/19/2024 10:5 0 AM BUTADIENE COMPRESSOR OPERATOR us Aquiles Rowell ACCOUNT EXECUTIVE SOFTWARE SALES LABORATORY Final Resu lt [facility] [address] [place] [address], * VITAMIN D, 25 OH (08/19/2024 10:50 AM BUTADIENE COMPRESSOR OPERATOR) [facility] VITAMIN D 25 HYDROXY S/P/B 31 30 - 100 NG/ML 08/19/2024 11:52 AM BUTADIENE COMPRESSOR OPERATOR [facility] Comment: ? INTERPRETATION ? DEFICIENT ??<20 ? INSUFFICIENT 20-29 ?SUFFICIENT 30-100 08/19/2024 10:5 0 AM BUTADIENE COMPRESSOR OPERATOR Aquiles Rowell ACCOUNT EXECUTIVE SOFTWARE SALES LABORATORY Final Resu lt Performing Organization Address [facility]/ZIP Co de Phone Number [facility] [address] [place] [address], * MAGNESIUM (08/19/2024 10:50 AM BUTADIENE COMPRESSOR OPERATOR) [facility] MAGNESIUM 2.2 1.8 - 2.4 MG/DL 08/19/2024 11:40 AM BUTADIENE COMPRESSOR OPERATOR [facility] 08/19/2024 10:5 0 AM BUTADIENE COMPRESSOR OPERATOR Aquiles Rowell ACCOUNT EXECUTIVE SOFTWARE SALES LABORATORY Final Resu lt Performing Organization Address City/[facility]/ZIP Co de Phone Number [facility] [address] [place] [address], * CYTOPATH CERV/VAG THIN LAYER [[id number]] (04/08/2024 11:05 AM CDT) [facility] CLINICAL INFORMATION: Postmenopausal [employer] [place] Clinical Information: 08/30/2019 [employer] [place] Date of Last Pap NONE GIVEN QU [facility] [place] Previous Biopsy? NONE GIVEN [facility] [place] SOURCE (QST) Cervix, Endocervix [place], [place] STATEMENT OF ADEQUACY: SATISFACTORY FOR EVALUATION [place], [place] PAP INTERPRETATION/RESU LTS [place] Comment: Cytology Results: Negative for intraepithelial lesion or malignancy. Atrophic pattern; predominantly parabasal cells COMMENT: This Pap test has been evaluated with computer assisted technology. [place] CLOSED CIRCUIT SCREEN WATCHER [place] Comment: KMS, CT(ASCP) CT Screening location: [place] [address] [place] [address] COMMENT: [place], [place] Comment: EXPLANATORY NOTE: The Pap is a screening test for cervical cancer. It is not a diagnostic test and is subject to false negative and false positive results. It is most reliable when a satisfactory sample, regularly obtained, is submitted with relevant clinical findings and history, and when the Pap result is evaluated along with historic and current clinical information. 04/08/2024 11:0 5 AM CDT 04/09/2024 9:12 AM CDT Narrative Resulting Agency Comment Performing Organization Information: ?Site ID: [id number] ?Name: [facility] ?Address: [address] [place] [address] [place] [address] ?Director: Devyn Fox Aquiles Rowell APRN PATHOLOGY/CYTOLOGY ORDERAB LES Final Result [facility] [address] [address], [place] * MG SCREENING W JEYSON TINA DIGI (05/06/2023 2:43 PM CDT) Anatomical Region Laterality Modality Breast Bilateral Mammography 05/06/2023 3:44 PM CDT Narrative 05/06/2023 3:52 PM CDT IMAGING STUDIES: Bilateral screening mammograms with computer-aided detection with 2-D and 3-D imaging. Tomosynthesis. DATE: 05/06/2023 2:29 PM HISTORY: screen brca ?? . COMPARISON: ??08/10/2021. 08/05/2017 TISSUE TYPE: The breast tissue is heterogeneously dense, which may obscure small masses. FINDINGS: 1. ??Moderately dense ??fibroglandular tissue pattern is present. Benign nodularity 2. ??No malignant microcalfcifications, new dominant masses, or architectural distortion. 3. No skin thickening or nipple retraction. ??Axillary regions are within normal limits. IMPRESSION: 1. No mammographic evidence of malignancy. 2. Assessment: ACR BI-RADS 2 - BENIGN FINDING(S) 3 .Routine Screening Bilateral MQSA BI-RADS Categories: Category 0 - needs additional imaging evaluation. Category 1 - negative. Category 2 - benign findings. Category 3 - probably benign findings, but short interval follow-up ?is recommended. Category 4 - suspicious abnormality and biopsy should be considered ?though the lesion may well be benign. Category 5 - highly suggestive of malignancy and appropriate action ?should be taken. ?? Category 6 - known biopsy-proven malignancy A) ??A negative report should not delay a biopsy if a dominant or ?clinically suspicious mass is present. B) ??Adenosis and dense breasts may obscure an underlying neoplasm. C) ??Study interpreted with computer aided detection. Ordered By: AQUILES ROWELL Interpreted By: Noemí Aceves, 05/06/2023 3:44 PM us Aquiles Rowell ACCOUNT EXECUTIVE SOFTWARE SALES MAMMO Final Resu lt * COLOGUARD (EXACT SCIENCE) (04/20/2023 7:15 AM CDT) COLOGUARD RESULT Negative Negative [facility] [employer] (CLIA #:[id number]) Comment: NEGATIVE TEST RESULT. A negative Cologuard result indicates a low likelihood that a colorectal cancer (CRC) or advanced adenoma (adenomatous polyps with more advanced pre-malignant features) ??is present. The chance that a person with a negative Cologuard test has a colorectal cancer is less than 1 in 1500 (negative predictive value >99.9%) or has an ??advanced adenoma is less than ??5.3% (negative predictive value 94.7%). These data are based on a prospective cross-sectional study of 10,000 individuals at average risk for colorectal cancer who were screened with both Cologuard and colonoscopy. (Baltazar Flowers al, N Engl J Med 2014;370(14):1286- 1297) The normal value (reference range) for this assay is negative. COLOGUARD RE-SCREENING RECOMMENDATION: Periodic colorectal cancer screening is an important part of preventive healthcare for asymptomatic individuals at average risk for colorectal cancer. ??Following a negative Cologuard result, the [place] Cancer Society and U.S. Multi-Society Task Force screening guidelines recommend a Cologuard re-screening interval of 3 years. References: [place] Cancer Society Guideline for Colorectal Cancer Screening: https://www.cancer.org/cancer/hmkfy-smekue-pxmemf/qgekehvqm-muzetkvkl-dkuvzcd/ac s-rec ommendations.html.; Nomi DK, Marla CR, Radha CortezK, Colorectal Cancer Screening: Recommendations for Physicians and Patients from the U.S. Multi-Society Task Force on Colorectal Cancer Screening , Am J Gastroenterology 2017; 112:3424-9046. TEST DESCRIPTION: Composite algorithmic analysis of stool DNA-biomarkers with hemoglobin immunoassay. ?? Quantitative values of individual biomarkers are not reportable and are not associated with individual biomarker result reference ranges. Cologuard is intended for colorectal cancer screening of adults of either sex, 45 years or older, who are at average-risk for colorectal cancer (CRC). Cologuard has been approved for use by the U.S. FDA. The performance of Cologuard was established in a cross sectional study of average-risk adults aged 50-84. Cologuard performance in patients ages 45 to 49 years was estimated by sub-group analysis of near-age groups. Colonoscopies performed for a positive result may find as the most clinically significant lesion: colorectal cancer [4.0%], advanced adenoma (including sessile serrated polyps greater than or equal to 1cm diameter) [20%] or non- advanced adenoma [31%]; or no colorectal neoplasia [45%]. These estimates are derived from a prospective cross-sectional screening study of 10,000 individuals at average risk for colorectal cancer who were screened with both Cologuard and colonoscopy. (Baltazar Manzano, N Engl J Med 2014;370(14):2353-9084.) Cologuard may produce a false negative or false positive result (no colorectal cancer or precancerous polyp present at colonoscopy follow up). A negative Cologuard test result does not guarantee the absence of CRC or advanced adenoma (pre-cancer). The current Cologuard screening interval is every 3 years. ([place] Cancer Society and U.S. Multi-Society Task Force). Cologuard performance data in a 10,000 patient pivotal study using colonoscopy as the reference method can be accessed at the following location: www.[employer]/results. Additional description of the Cologuard test process, warnings and precautions can be found at www.cologuard.com. STOOL STOOL SPECIMEN / Unknown 04/20/2023 7:15 AM CDT 04/22/2023 6:24 PM CDT Sarah Webb GLASS LOADING EQUIPMENT TENDER-BC BODY FLUIDS AND STOOLS O RDERABLES Final Result Performing Organization Address City/State/[facility] Co de Phone Number [employer] ([employer] [address] [facility]) [address] [place] [address], [employer] (CLIA #:[id number]) [address] 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
--- OUTSIDE RECORDS SUMMARY | 2024-10-07 04:37 | XMS_ITS | Encounter Summary ---
Author Organization [facility] Address [facility] [place] [address] [place] [address] Care Team Providers Care Laborer Powerhouse Name Role Phone Dian Zamudio RN Unavailable [phone] Nila Presley APRN Primary Care Provider [phone] Encounter Details Date Type Department Care Team ([facility] [place] [facility] Contact Info) Description 06/21/2024 [employer] (formerly [employer]) Message Enc [facility] Family & Internal Medicine [address] [address] [facility] Provider Needs to reset appt Social History Tobacco Use Types Packs/Day Years [...] Sex Assigned at Female 10/22/2019 4:17 PM NETWORK INTELLIGENCE ANALYST Legal Sex Female 5:38 PM CDT Gender Identity Female 10/22/2019 4:17 PM NETWORK INTELLIGENCE ANALYST Sexual Orientation Straight 10/22/2019 4: 17 PM NETWORK INTELLIGENCE ANALYST documented as of this encounter Plan of Treatment Upcoming Encounters Date Type Department Care Team (Late Contact Info) Description 12/21/2024 10:00 AM CDT Appointment [facility] [address] [place] [address] Nila Presley APRN [address] [address] 02/24/2025 9:40 AM CDT Office Visit [facility] Family & Internal Medicine - [facility] [address] [place] [address] Nila Presley APRN [address] [address] documented as of this encounter Visit Diagnoses Not on filedocumented in this encounter Additional Health Concerns Infection Onset Date Last Indicated Resolved Time 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 Assessment Noted Time PHQ-9 Depression Total Score: 0 06/04/20 24 1:42 PM CDT documented as of this encounter Care Teams Laborer Powerhouse Relationship Specialty Start Date End Date Nila Presley APRN [address] [address] PCP - General NURSE PRACTITIONER 04/16/23 Dian Zamudio, RN [address] [place] [address] Health Administrator (Ambulatory) REGISTERED NURSE 12/09/18 documented as of this encounter
--- OUTSIDE RECORDS SUMMARY | 2024-10-07 04:37 | XMS_ITS | Encounter Summary ---
Author Organization [facility] Address [facility] [address] [place] [address] Care Team Providers Care Trim Setter Name Role Phone Dian Zamudio RN Unavailable [phone] Nila Presley APRN Primary Care Provider [phone] Encounter Details Date Type Department Care Team (Late st Contact Info) Description 08/24/2023 [employer] Message Enc [facility] Family & Internal Medicine - [place] [address] [place] [address] Nila Presley APRN [address] [facility] [address] [place] [address] Sinus infection Social History Tobacco Use Types Packs/Day Years Used Date Smoking Tobacco: Never Smokeless Tobacco: Never Alcohol Use Standard Drinks/Week Comments Yes 0 (1 standard drink = 0.6 oz pur e alcohol) rare PHQ-2 Answer Date Recorded Patient Health Questionnaire-2 Score 3 03/11/2023 Education Answer Date Recorded What is the highest level of school you have completed or the highest degree you have received? Associate degree: occupational, technical, or vocational program 11/25/2018 Comments No Sex and Gender Information Value Date Recorded Sex Assigned at Female 10/22/2019 4:17 PM SPACE PHYSICIST Legal Sex Female 5:38 PM CDT Gender Identity Female 10/22/2019 4:17 PM SPACE PHYSICIST Sexual Orientation Straight 10/22/2019 4: 17 PM SPACE PHYSICIST documented as of this encounter Progress Notes * Nila Presley APRN - 08/27/2023 2:41 PM CST Patient will need to be seen through telehealth or in the walk-in clinic. E PHYSICIST * Pawan Fernandez RN - 08/27/2023 10:18 AM CST FYI E PHYSICIST * Nila Presley APRN - 08/25/2023 9:35 PM CST What are the patient's symptoms? Is she able to complete a telehealth visit or the walk- in clinic? E PHYSICIST * Samreen Williamson MA - 08/25/2023 10:00 AM CST E PHYSICIST documented in this encounter Plan of Treatment Upcoming Encounters Date Type Department Care Team (Late st Contact Info) Description 12/21/2024 10:00 AM CDT Appointment [facility] [address] [place] [address] Nila Presley APRN [address] [address] 02/24/2025 9:40 AM CDT Office Visit [facility] Family & Internal Medicine - [place] [address] [place] [phone] Nila Presley APRN [address] [address] documented as of this encounter Visit Diagnoses Not on filedocumented in this encounter Additional Health Concerns Infection Onset Date Last Indicated Resolved Time 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 Assessment Noted Time PHQ-9 Depression Total Score: 9 03/11/20 23 10:35 AM CDT documented as of this encounter Care Teams Trim Setter Relationship Specialty Start Date End Date Nila Presley APRN [address] [facility] [address] [place] [address] PCP - General NURSE PRACTITIONER 04/16/23 Dian Zamudio, RN [address] [place] [address] Pusher Runner (Ambulatory) REGISTERED NURSE 12/09/18 documented as of this encounter
== END 2024-10-01 13:45 | disposition home or self-care (01) ==
PROVIDERS: PCP Registered Nurse; Visit Provider Podiatrist Foot & Ankle Surgery
PROC: (CPT 28750; principal; 2024-10-01 11:00)
DX: M21.612 Bunion of left foot (principal); M20.12 Hallux valgus (acquired), left foot; M19.072 Primary osteoarthritis, left ankle and foot; M20.21 Hallux rigidus, right foot; I10 Essential (primary) hypertension; Z82.49 Family history of ischemic heart disease and other diseases of the circulatory system
CPT/HCPCS: 28750; 99199; C1713; C1769; J0690; J1100; J2003; J2250; J2405; J2704; J3010; J7120